=== PATIENT | male | born 1995 | race Caucasian/White ===

== ENCOUNTER 2022-11-22 22:56 | Emergency (ER) | payer BC ==
[2022-11-22] MEDS ORDERED: Lidocaine 1% 10 ML MDV INJECT ONE (23:01)
[2022-11-22] MEDS ORDERED: Bacitracin Oint 1 GM U/D Packet TOP ONE (23:01)
== END 2022-11-22 23:30 | disposition home or self-care (01) ==
LOC: DL.ED 22:56
DX: S61.211A Laceration without foreign body of left index finger without damage to nail, initial encounter (principal); Z91.038 Other insect allergy status; W26.8XXA Contact with other sharp object(s), not elsewhere classified, initial encounter
CPT/HCPCS: 12001; 99282